=== PATIENT | male | born 1970 | race Caucasian/White ===

== ENCOUNTER 2016-10-27 16:26 | Emergency (ER) | payer SELFPAY ==
[~2016-10-27] VITALS: Ht 180.3 cm; Wt 45.0 kg
[2016-10-27] MEDS ORDERED: NORCO1 TA1 PO (17:50)
[2016-10-27 18:40] VITALS: BP 145/71
== END 2016-10-27 18:40 | disposition home or self-care (01) | DRG 563 ==
LOC: ED 16:26
DX: S83.92XA Sprain of unspecified site of left knee, initial encounter (principal); X50.1XXA Overexertion from prolonged static or awkward postures, initial encounter; Y92.009 Unspecified place in unspecified non-institutional (private) residence as the place of occurrence of the external cause

== ENCOUNTER 2016-11-02 14:14 | Emergency (ER) | payer SELFPAY ==
[~2016-11-02] VITALS: Ht 180.3 cm; Wt 80.0 kg
[~2016-11-02 14:14] MED LIST: NORCO1 TA1 PO
[2016-11-02] MEDS ORDERED: LORTAB 5-325 MG1 TAB PO (14:32)
[2016-11-02 14:58] VITALS: BP 154/86
== END 2016-11-02 15:00 | disposition home or self-care (01) | DRG 556 ==
LOC: ED 14:14
DX: M25.562 Pain in left knee (principal); M23.207 Derangement of unspecified meniscus due to old tear or injury, left knee